=== PATIENT | female | born 1950 | race Caucasian/White ===

== ENCOUNTER 2016-12-30 00:18 | Day surgery (SDC) | payer MEDICARE ==
[~2016-12-30] VITALS: Ht 152.4 cm; Wt 63.8 kg
[~2016-12-30 00:18] MED LIST: ATOR20TA65 PO; CHOL100043 PO; LORA1TAB PO; VIT1TABL83 PO
[2016-12-30] MEDS ORDERED: Sodium Chloride LOK Flush 10 mL Syringe IV PRN (06:00)
[2016-12-30] MEDS ORDERED: fentaNYL-PF 50 mCg/mL 2 mL Inj IVPUSH PRN (06:00)
[2016-12-30] MEDS ORDERED: 0.9% Sodium Chloride 1,000 ML IV SCH (06:00)
[2016-12-30 10:11] VITALS: BP 145/81; PULSE 66; RESP 16; O2SAT 96
[2016-12-30 11:18] VITALS: BP 147/74; PULSE 67; RESP 14; O2SAT 96
[2016-12-30 11:35] VITALS: BP 148/76; PULSE 62; RESP 12; O2SAT 100
[2016-12-30 11:39] VITALS: BP 161/81; PULSE 62; RESP 14; O2SAT 99
--- NOTE | 2016-12-30 12:59 | ENDO ---
[address] [address] ENDOSCOPY PROCEDURE PATIENT: MARLIN SNEED : 1950 MR#: [id number] ADMIT: 12/30/2016 JOB ID: [id number] DATE: 12/30/2016 PRIMARY PROVIDER: Marlin Santos PROCEDURE: Colonoscopy with hot snare polypectomy. INDICATIONS: A 66-year-old female with a personal history of colon polyps. These were hyperplastic at last examination seven years ago. EQUIPMENT: PCF H 180 AL. SEDATION: 1. 5 mg Versed. 2. 100 mcg fentanyl. COMPLICATIONS: None identified. BOWEL PREPARATION: Very adequate. PROCEDURAL INFORMATION: After the risks and benefits were explained, written and verbal informed consent was obtained. The patient was brought into the endoscopy suite and placed into the left lateral decubitus position. Sedation was achieved as above. A digital rectal examination was accomplished. No significant pathology appreciated. The scope was introduced into the rectum and advanced to the cecum as identified by the appendiceal orifice and ileocecal valve. The scope was slowly withdrawn to carefully examine the mucosa for any defects or lesions. Multiple direct views were made through the dentate line for exclusion of pathology. The colon was decompressed. The scope removed from the patient who demonstrated moderate intolerance to the examination. She was quite sweaty during the test and required more than expected medication. FINDINGS: A fairly tortuous sigmoid colon. At the rectosigmoid junction, there is an approximately 6 mm sessile polyp removed with hot snare. It was difficult to exclude adenomatous features and we, therefore, removed this. It was even inspected with narrow band imaging. No other significant pathology was appreciated throughout. ENDOSCOPIC DIAGNOSIS: Colon polyp x1. RECOMMENDATIONS: 1. Await histopathology. 2. If adenomatous features are identified, then I would recommend a repeat colonoscopy in five years with anesthesia support. If this is another hyperplastic polyp, then repeat colonoscopy consideration with anesthesia support can be delayed 10 years.
--- NOTE | 2017-01-01 17:00 | PATH ---
SURGICAL PATHOLOGY Attending Physician:Yoli Hilliard CASE STATUS: Signed Out PATIENT NAME: JACEK SNEED PID: [id number] : 1950 DATE COLLECTED:12/30/2016 20:58 SPECIMEN: Colon, Polyp CLINICAL HISTORY: 1). RECTAL-SIGMOID POLYP X1 FINAL DIAGNOSIS: 1.RECTOSIGMOID POLYP, BIOPSY: HYPERPLASTIC POLYP. ICD10 D12.7 GROSS DESCRIPTION: Received in formalin, labeled with the patient's name and "rectosigmoid polyp x1" is one fragment of mckeon soft tissue measuring 0.4 x 0.3 x 0.2 cm. The fragment is totally submitted in one cassette. [id number]) MICRO DESCRIPTION: See diagnosis. ICD-9 CODES: CPT CODES: 1: 30908 Electronically Signed Out Bran Brand MD, Ph.D. [facility] Pathology [facility] [address], [place] [address] Technical component performed at [facility], [facility] [address], [place], [address]
== END 2016-12-30 23:59 | disposition home or self-care (01) ==
LOC: END 00:18
PROVIDERS: ATTEND Internal Medicine Gastroenterology
DX: Z12.11 Encounter for screening for malignant neoplasm of colon (principal); Z86.010 Personal history of colon polyps; K63.5 Polyp of colon; E78.5 Hyperlipidemia, unspecified; K57.30 Diverticulosis of large intestine without perforation or abscess without bleeding; R73.01 Impaired fasting glucose; M85.80 Other specified disorders of bone density and structure, unspecified site; Z87.891 Personal history of nicotine dependence
CPT/HCPCS: 45385; 99153; G0500; J2250; J3010; J7030